=== PATIENT | male | born 1960 | race African-American/Black ===

== ENCOUNTER 2023-08-13 13:59 | Inpatient (IN) | payer BC, SELFPAY ==
--- NOTE | 2023-08-12 23:08 | ED.GENMED ---
Addendum entered and electronically signed by Frankie Pineda MD 08/13/23 09:34:
Patient has remained stable overnight. Mild hypoxia while sleeping. States he feels mildly improved. In no respiratory distress but pulse ox 97 to 98% on 4 L. Lungs with a few bibasilar crackles. Heart regular rate and rhythm. Elevated BMI.
Extremities unremarkable. Large but no cord or erythema.
Testing reviewed. Suspicious for mild CHF. However PE/DVT has to be entertained. Patient is too large for our scanner. We are trying to transfer to [facility] they have accepted him but awaiting a bed. I have elected to do leg ultrasounds and
get an echocardiogram. This was reviewed with cardiology. Upon updating the patient he went into a 9 beat run of ventricular tachycardia. Cardiology was then consulted. Also given a dose of Lasix and I have elected to heparinize him. He is
aware of the risk benefit of heparin. He has no bleeding disorders. Currently is stable. Repeat EKG stable.
Original Note:
History of Present Illness
General
Chief Complaint: Breathing Problem
Source: patient and family
Exam Limitations: none
Time Seen by Provider: 08/12/23 22:40
Nursing documentation reviewed up to this point in time: agreed with
Travel History
Have you had any contact with someone who has COVID-19?: No
Do you have any symptoms of coronavirus? Fever > 100 degrees, chills, cough, shortness of breath, sore throat, loss of taste or smell, muscle aches, or headache?: Yes
Symptoms:: SOB
History of Present Illness
History of Present Illness:
Patient is a very pleasant 62-year-old man with a past medical history of hypertension, GERD and obesity who presents with gradually worsening shortness of breath for 2 to 3 weeks. In addition, patient reports increased swelling in both lower legs
and ankles. Patient reports that he has never felt short of breath before. He denies a history of cardiac disease. He denies a history of pulmonary embolism and DVT. He denies recent long travel history. Patient reports he has been coughing up
white mucus but denies fever. He denies sick contacts. Patient denies any specific chest pain.
Past History
Past History
ED Past Medical History: HTN
ED Past Surgical History: Other
Social History
Tobacco: Non-smoker
Alcohol: None
Drug: None
Personal:
Living: with family
Employment: Employed
Family History
Family History: Other
Review of Systems
Review of Systems
Allergies reviewed?: Yes
Other source history: family
All Other Systems: ROS reviewed and negative except as documented in HPI and ROS
Constitutional: Reports no symptoms
EENT: Reports no symptoms
Respiratory: Reports cough and trouble breathing
Cardiac: Reports no symptoms
ABD/GI: Reports no symptoms
: Reports no symptoms
Musculoskeletal: Reports no symptoms
Skin: Reports no symptoms
Neurological: Reports no symptoms
Endocrine: Reports no symptoms
Hematologic/Lymphatic: Reports no symptoms
Psychiatric: Reports no symptoms
Phy Exam
Physical Exam
Physical Exam:
Physical Exam
General: no apparent distress, not acutely ill
Neck: supple. no meningeal signs. normal psoterior pharynx
Heart: s1/s2 regular rate and rhythm, no murmur. equal radial pulses.
Lungs: no acute respiratory distress. clear bilaterally
Abdomen: normal bowel sounds. not tender. no CVAT
Neuro: alert and oriented. no focal neurological deficits
Skin: no rash
Psychiatric: well kept. interactive and cooperative
Extremities: no edema. no calf tenderness. negative homans. good distal pulses
Scores
Heart Failure Risk
Heart Failure Risk Score: Not Applicable
Course
Orders/Labs/Results
Orders:
Orders
08/12/23 22:57
Electrocardiogram (*1) Urgent
Reason for Study: Other
Other Reason for Exam: Respiratory Distress
Cardiac Monitoring- Treatment ONCE
EKG- Treatment ONCE
IV Insert/Care/Rem.- Treatment PRN
CR Chest - 2 Views Urgent
Comment:
Reason For Exam: respiratory distress
O2 Therapy [RESP] Urgent
Titrate/Wean O2 to maintain O2 sat greater than (%): 93
Special Instructions: TO MAINTAIN CONTINUOUS O2 SATS >/= 93%
Pulse Ox/cont/shift [RESP] Urgent
Quantity: 1
Special Instructions: continuous pulse ox
08/12/23 23:21
Complete Blood Count/With Diff Urgent
Comprehensive Metabolic Panel Urgent
NT-proBNP Urgent
Troponin I Urgent
08/13/23 02:05
Mag Hydrox/Al Hydrox/Simeth [Maalox] 30 ml Phenobarb/Hyoscy/Atropine/Scop [] 10 ml Viscous Lidocaine 2% [Xylocaine Viscous Cup] 10 ml PO NOW
08/13/23 02:14
Mag Hydrox/Al Hydrox/Simeth [Maalox] 30 ml .ROUTE .STK-MED ONE
Mag Hydrox/Al Hydrox/Simeth [Maalox] 30 ml .ROUTE .STK-MED ONE
Phenobarb/Hyoscy/Atropine/Scop [] 10 ml .ROUTE .STK-MED ONE
Phenobarb/Hyoscy/Atropine/Scop [] 10 ml .ROUTE .STK-MED ONE
Viscous Lidocaine 2% [Xylocaine Viscous Cup] 15 ml .ROUTE .STK-MED ONE
Viscous Lidocaine 2% [Xylocaine Viscous Cup] 15 ml .ROUTE .STK-MED ONE
Abnormal Lab Results
08/12/23
23:21
RBC 4.28 L 10^6/uL
(4.70-6.10)
MCV 98.1 H fL
(80.0-94.0)
MCH 32.2 H pg
(27.0-31.0)
MCHC 32.9 L g/dL
(33.0-37.0)
Absolute Lymphs (auto) 1.0 L 10^3/uL
(1.2-3.4)
Neutrophils % 79.5 H %
(42.2-75.2)
Lymphocytes % 13.1 L %
(20.5-51.1)
Chloride 110 H mmol/L
(98-107)
Glucose 118 H mg/dl
(70-99)
Troponin I 0.059 H* ng/ml
08/12/23 23:21
08/12/23 23:21
Vital Signs
Initial and Last Documented VS:
Initial Vital Signs
Temp Pulse Resp Pulse Ox
98.3 F 92 28 94
08/12/23 22:09 08/12/23 22:09 08/12/23 22:09 08/12/23 22:09
Last Documented Vital Signs
Temp Pulse Resp BP Pulse Ox
98.3 F 75 29 142/86 95
08/12/23 22:09 08/13/23 02:00 08/13/23 02:00 08/13/23 02:00 08/13/23 02:00
MDM/Problems Addressed
Differential Diagnosis Includes:
Congestive heart failure, acute coronary syndrome, PE, pneumonia
MDM/Problems Addressed:
Patient presents with subacute shortness of breath and acute hypoxia
Chronic conditions affecting care: HTN
Acute Exacerbation and/or Progression of Chronic Illness: HTN
*Radiology
Radiology exam reviewed: preliminary read by ED provider (Increased lung markings bilaterally)
*Pulse Oximetry
Patient hypoxic: yes
*EKG
Interpreted by ED Provider?: Yes
Interpretation: abnormal
Comparison EKG: changes noted
Rate: normal
Rhythm: sinus
Dexter: left axis deviation
Interval: normal interval
QRS Pattern: normal QRS
Ischemia: non-specific ST changes
*Fire Suppression Captain Interpretation
Rate: normal
Interpretation: normal
Rhythm: sinus
*Critical Care Note
Total Time (30-74mins, 75-104mins- exclusive of procedures): Not Applicable
Data Reviewed
Source: family
Patient Management
Discussion with other providers: Hospitalist (Discussed case with hospitalist, Dr. Alston, who reports that he is uncomfortable admitting the patient due to his body habitus. He reports that if the patient needs a CAT scan, he will not be able to get
it due to weight)
Escalation/DeEscalation of care consider admission/obs:
Initially spoke to automobile accessories installer at [facility] who is hesitant to accept the patient due to his body habitus. I then spoke to Dr. Kayla Calabrese at [facility] in [place] who was agreeable to accepting the patient. The patient remains
hemodynamically stable. His pulse ox is normal on 2 L of oxygen. He has no fever, elevated white blood cell count or sign of pneumonia on chest x-ray.
ED Attending Note
-
Portions of this chart may have been created with voice recognition software.� Occasional wrong word or��sound alike� substitutions may have occurred due to the inherent limitations of voice recognition software.
Discharge Plan
Departure
Patient Disposition: [facility]
Date of Disposition: 08/13/23
Time of Disposition: 00:21
Admit to doctor: Dr. Kayla Calabrese
Patient with high blood pressure during this ER visit?: Yes
Condition: Good
Covid-19: Not Applicable
Discharge Problem:
New onset of congestive heart failure, Acute hypoxia
Prescriptions:
No Action
albuterol sulfate 90 MCG/PUFF HFA aerosol inhaler
2 puff inhalation R Q4HPRN PRN (Reason: wheezing, shortness of breath) Qty: 1 0RF
celecoxib [Celebrex] 200 mg Capsule
200 mg PO DAILY PRN (Reason: aches)
metoprolol succinate 50 mg Tablet Extended Release 24 Hr
50 mg PO DAILY
famotidine [Pepcid AC] 20 mg Tablet
20 mg PO BID
azelastine 137 mcg (0.1 %) Aerosol,[place]
2 spray INTRANASAL BID
Referrals:
Delroy Kolb MD [Family Provider] -
Hospital Transfer
Other hospital: [facility]
I certify that the patient requires transfer: Yes
Discussed case with accepting physician: Dr. Kayla Calabrese
Reason for transfer: availability of service
Interventions
Interventions:
*Risk Screen - Suicide Last Done: 08/12/23 23:01
*General Assessment Last Done: 08/12/23 23:01
*Neglect/Abuse Screening Last Done: 08/12/23 23:01
ED- Fall Risk Assessment Last Done: 08/12/23 23:37
ED- Cardiac Assessment Last Done: 08/12/23 23:37
ED- Pulmonary Assessment Last Done: 08/12/23 23:37
Discharge Date and Time
Print Language: ICELANDIC
[2023-08-12 23:23] VITALS: BMI 69.5
[2023-08-12 23:29] LABS: % Basophils 0.3 % (0-2); % Eosinophils 0.3 % (0-6); % Immature Granulocytes 0.3 % (0-0.5); % Lymphocytes 13.1 % (20.5-51.1); % Monocytes 6.5 % (1.7-9.3); % Neutrophils 79.5 % (42.2-75.2); Absolute Monocytes 0.5 10^3/uL (0.1-0.6); Absolute Neutrophils 6.1 10^3/uL (1.4-6.5); Hemoglobin 13.8 g/dL (13.0-18.0); Mean Corp Hgb Conc. 32.9 g/dL (33.0-37.0); Mean Corpuscular Hgb 32.2 pg (27.0-31.0); Mean Corpuscular Volume 98.1 fL (80.0-94.0); Nucleated Red Blood Cells % 0 % (-); Platelet Count 161 10^3/uL (130-400); Red Blood Cell Count 4.28 10^6/uL (4.70-6.10); Red Cell Dist. Width 12.9 % (11.5-14.5); White Blood Cell Count 7.7 10^3/uL (4.8-10.8)
[2023-08-12 23:36] VITALS: BP 175/89
[2023-08-12 23:43] LABS: ALT (SGPT) 13 U/L (0-50); AST (SGOT) 22 U/L (17-59); Albumin 3.8 g/dl (3.5-5.0); Alkaline Phosphatase 110 U/L (38-126); Blood Urea Nitrogen 13 mg/dl (9-20); Calcium 9.4 mg/dl (8.4-10.2); Carbon Dioxide 24 mmol/L (22-30); Chloride 110 mmol/L (98-107); Estimated Creatinine Clearance > 125 ml/min; Glucose 118 mg/dl (70-99); Potassium 4.3 mmol/L (3.5-5.1); Sodium 140 mmol/L (135-145); eGFR > 60.00
[2023-08-12 23:57] LABS: NT-proBNP 1420 pg/ml; Troponin I 0.059 ng/ml
[2023-08-13] VITALS (20 sets, daily range): BP systolic 117–184; BP diastolic 74–121
[2023-08-13] MEDS: MAALOX 50 PO (02:16)
--- NOTE | 2023-08-13 07:47 | EDRN ---
the pt was received from the previous night patrol inspector RN, the pt is resting in stretcher in the lowest position, side rails up x2, call pappas within reach, HOB elevated, no s/s of distress, no c/o chest pain, c/o SOB on exertion, VS WNL, NSR in the 60's,
last BP 156/121 (134), the pt is currently on 4L NC Sp02 95%, awaiting for transport to be set up to take the pt to [place], the pt and the pts family are aware of this, no complaints offered at this time, will continue to monitor the pt closely
--- NOTE | 2023-08-13 08:48 | ED.GENMED ---
History of Present Illness
General
Chief Complaint: Breathing Problem
Time Seen by Provider: 08/12/23 22:40
Travel History
Have you had any contact with someone who has COVID-19?: No
Do you have any symptoms of coronavirus? Fever > 100 degrees, chills, cough, shortness of breath, sore throat, loss of taste or smell, muscle aches, or headache?: Yes
Symptoms:: SOB
Past History
Past History
ED Past Medical History: HTN
ED Past Surgical History: Other
Social History
Tobacco: Non-smoker
Alcohol: None
Drug: None
Personal:
Living: with family
Employment: Employed
Family History
Family History: Other
Course
Orders/Labs/Results
Orders:
Orders
08/12/23 22:57
Electrocardiogram (*1) Urgent
Reason for Study: Other
Other Reason for Exam: Respiratory Distress
Cardiac Monitoring- Treatment ONCE
EKG- Treatment ONCE
IV Insert/Care/Rem.- Treatment PRN
CR Chest - 2 Views Urgent
Comment:
Reason For Exam: respiratory distress
O2 Therapy [RESP] Urgent
Titrate/Wean O2 to maintain O2 sat greater than (%): 93
Special Instructions: TO MAINTAIN CONTINUOUS O2 SATS >/= 93%
Pulse Ox/cont/shift [RESP] Urgent
Quantity: 1
Special Instructions: continuous pulse ox
08/12/23 23:21
Complete Blood Count/With Diff Urgent
Comprehensive Metabolic Panel Urgent
NT-proBNP Urgent
Troponin I Urgent
08/13/23 02:05
Mag Hydrox/Al Hydrox/Simeth [Maalox] 30 ml Phenobarb/Hyoscy/Atropine/Scop [] 10 ml Viscous Lidocaine 2% [Xylocaine Viscous Cup] 10 ml PO NOW
08/13/23 02:14
Mag Hydrox/Al Hydrox/Simeth [Maalox] 30 ml .ROUTE .STK-MED ONE
Mag Hydrox/Al Hydrox/Simeth [Maalox] 30 ml .ROUTE .STK-MED ONE
Phenobarb/Hyoscy/Atropine/Scop [] 10 ml .ROUTE .STK-MED ONE
Phenobarb/Hyoscy/Atropine/Scop [] 10 ml .ROUTE .STK-MED ONE
Viscous Lidocaine 2% [Xylocaine Viscous Cup] 15 ml .ROUTE .STK-MED ONE
Viscous Lidocaine 2% [Xylocaine Viscous Cup] 15 ml .ROUTE .STK-MED ONE
08/13/23 08:42
US Periph Venous LOWER Ext Yoel Urgent
Comment:
Reason For Exam: Short of breath.
08/13/23 08:43
EKG [Electrocardiogram (*1)] Urgent
Reason for Study: Shortness of Breath
EKG- Treatment ONCE
Troponin I Urgent
08/13/23 08:51
Echo 2D MMode Color/Doppler Urgent
Reason for Study: sob
Abnormal Lab Results
08/12/23
23:21
RBC 4.28 L 10^6/uL
(4.70-6.10)
MCV 98.1 H fL
(80.0-94.0)
MCH 32.2 H pg
(27.0-31.0)
MCHC 32.9 L g/dL
(33.0-37.0)
Absolute Lymphs (auto) 1.0 L 10^3/uL
(1.2-3.4)
Neutrophils % 79.5 H %
(42.2-75.2)
Lymphocytes % 13.1 L %
(20.5-51.1)
Chloride 110 H mmol/L
(98-107)
Glucose 118 H mg/dl
(70-99)
Troponin I 0.059 H* ng/ml
05/31/24 23:21
08/12/23 23:21
Vital Signs
Initial and Last Documented VS:
Initial Vital Signs
Temp Pulse Resp Pulse Ox
98.3 F 92 28 94
08/12/23 22:09 08/12/23 22:09 08/12/23 22:09 08/12/23 22:09
Last Documented Vital Signs
Temp Pulse Resp BP Pulse Ox
97.9 F 69 17 158/86 96
08/13/23 08:29 08/13/23 08:29 08/13/23 08:29 08/13/23 08:29 08/13/23 08:29
Update Note
Update Note:
0850.... Awaiting transfer to [facility]. I elected to evaluate the patient to see how he was doing. He states he feels mildly improved. He was sleeping when I went in the room. His stated his pulse ox did go down to the low 80s while he was
sleeping. However currently at 97 to 98% when alert. He is in no respiratory distress. Lungs are relatively clear but distant. Regular rate and rhythm. Abdomen elevated BMI. Extremities are large symmetrical without cord or erythema.
Impression is shortness of breath. Possible CHF. Pulmonary emboli has to be considered. However patient is too large for our scanner. We are attempting to transfer him. Transfer has not been successful to date. We are contacting [facility]. I
contacted our hospitalist about possible admission here pending transfer but that apparently is a no go. We will do leg ultrasounds. We will also get an echocardiogram to evaluate EF and possible RV strain..
0855... Patient with a run of ventricular tachycardia. 9 beat. Remained stable and asymptomatic. He did state he had an episode of dizziness yesterday. Asked cardiology to see. Feel heparin is reasonable. Both because of a possibility of
underlying PE and coronary disease
ED Attending Note
-
Portions of this chart may have been created with voice recognition software.� Occasional wrong word or��sound alike� substitutions may have occurred due to the inherent limitations of voice recognition software.
Discharge Plan
Departure
Patient Disposition: Acute [facility] Hospital
Date of Disposition: 08/13/23
Time of Disposition: 00:21
Admit to doctor: Dr. Kayla Calabrese
Patient with high blood pressure during this ER visit?: Yes
Condition: Good
Covid-19: Not Applicable
Discharge Problem:
New onset of congestive heart failure, Acute hypoxia
Prescriptions:
No Action
albuterol sulfate 90 MCG/PUFF HFA aerosol inhaler
2 puff inhalation R Q4HPRN PRN (Reason: wheezing, shortness of breath) Qty: 1 0RF
celecoxib [Celebrex] 200 mg Capsule
200 mg PO DAILY PRN (Reason: aches)
metoprolol succinate 50 mg Tablet Extended Release 24 Hr
50 mg PO DAILY
famotidine [Pepcid AC] 20 mg Tablet
20 mg PO BID
azelastine 137 mcg (0.1 %) Aerosol,[place]
2 spray INTRANASAL BID
Referrals:
Delroy Kobl MD [Family Provider] -
Hospital Transfer
Other hospital: [facility]
I certify that the patient requires transfer: Yes
Discussed case with accepting physician: Dr. Kayla Calabrese
Reason for transfer: availability of service
Interventions
Interventions:
*Risk Screen - Suicide Last Done: 08/12/23 23:01
*General Assessment Last Done: 08/12/23 23:01
*Neglect/Abuse Screening Last Done: 08/12/23 23:01
ED- Fall Risk Assessment Last Done: 08/12/23 23:37
ED- Cardiac Assessment Last Done: 08/13/23 07:42
ED- Pulmonary Assessment Last Done: 08/13/23 07:42
Discharge Date and Time
Print Language: JAPANESE
--- NOTE | 2023-08-13 09:04 | EDRN ---
Dr. Pineda and this RN were at the pts bedside and the pt had a 10 beat run of Vtach and then broke into Sinus Rhythm, orders placed by the provider Dr. Pineda, the pt is currently in NSR in the 70's, will continue to monitor the pt closely
[2023-08-13] MEDS: LASIX 40 MG IV (09:28)
[2023-08-13] MEDS: HEPARIN 4000 UNITS IV (09:28)
[2023-08-13] MEDS: HEPARIN 25000 UNITS/250 ML IV (09:33)
--- NOTE | 2023-08-13 09:50 | EDRN ---
Heparin gtt started at 1000units/hour via RAC #[address], PTT sent prior to initiation of heparin, lasix IV also administered, Dr. Pineda at the pts bedside speaking with the pt and the pts , NSR in the 80's, second EKG performed, the pt
has c/o left shoulder intermittent cramping pain 04/23, provider aware, the pt is currently still on 4L NC Sp02 96%, will continue to monitor the pt closely
[2023-08-13 10:14] LABS: Troponin I 0.057 ng/ml
[2023-08-13 10:18] LABS: APTT 28.2 Sec (23.4-35.0)
--- NOTE | 2023-08-13 10:40 | CON.CAR ---
Addendum entered and electronically signed by Vineet Dior MD 08/13/23 11:17:
I saw and examined the patient.
The Plug Wirer's note was reviewed and I agree with the note.
Comment:
GEN: No distress, awake, Ox3
HEENT: supple, anicteric, mmm
LUNGS: dec Bs at bases
CV: Reg, S1/S2, 03/19 syst LSB, no gallop
ABD: soft, BS+, NT/ND
EXT: +1 edema
NEURO: Gross non-focal
SKIN: No rash
Plan:
He has a past medical history of hypertension, GERD, and morbid obesity presents to [facility] with hypoxemia, left shoulder aches and shortness of breath. He has noticed symptoms for the past several weeks with intermittent leg edema,
dyspnea on exertion and yesterday had worsening symptoms. Evaluation revealed mildly abnormal proBNP, hypoxemia, mildly abnormal troponins and a left popliteal DVT.
We were asked to evaluate him regarding chest pain, shortness of breath, and brief nonsustained ventricular tachycardia.
Agree with plan for CT scan to evaluate for thromboembolic disease. Troponins are overall stable. EKG is overall unremarkable.
Would start Lasix 40 mg IV daily and continue IV heparin. Continue Toprol 50 mg daily. His blood pressure is currently much improved.
He will need an echocardiogram but with his body habitus he would likely will need contrast with the study.
After his evaluation for thromboembolic disease he likely will also need an ischemic evaluation.
Add aspirin 81 mg daily.
Will follow if he is not transferred to [facility] for further evaluation.
Original Note:
Consultation
Consultation Request
Date/Time Consultation Requested: 08/12/2013
Date/Time Consultation Performed: 08/13/2023
Requesting Provider: Dr. Pineda
Performing Provider: Dr. Dior
Reason for Consultation: SOB, suspected CHF
Medical History
-
History of Present Illness:
HPI: Lev is a 62 year old male with PMH of hypertension, asthma, GERD, and obesity who presented to [facility] for evaluation of progressively worsening SOB. He states symptoms started a few weeks ago and he would feel short of breath after walking
intermittently. He then noted a few days ago he was becoming more SOB. Yesterday he was short of breath after walking up a flight of stairs and noticed that it took him longer than usual to catch his breath. He then felt SOB walking only a few steps
into the bathroom and decided to check his pulse ox which he states was 83-87%. With this, he called his PCP and was recommended ER evaluation. In ER, he was placed on supplemental oxygen and labwork revealed elevated proBNP. He admits to noticing
increased LE edema mostly of the L leg over the past few weeks as well. He was given a dose of IV lasix in the ER and notes he has been responding quickly with good urine output thus far. He had LE US which showed nonocclusive thrombus involving the
L popliteal vein. Given body habitus, plan is for transfer to [facility] for further evaluation for possible PE. While in ER, he had 10 beat run of NSVT, during which he was asymptomatic. Given concern for acute heart failure and NSVT, cardiology
consulted. He reports he is feeling well currently. Breathing feels improved with supplemental O2 and lasix. He has no chest pain or dizziness.
PMH:
HTN
Asthma
GERD
Obesity
Past Medical History
Past Medical History: Other (In HPI)
Social History
Tobacco: Non-Smoker
Alcohol: None
Drug: None
Personal:
Living: With Family
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
Family History
Family History: Hypertension
Allergies / Home Medications
Allergy/AdvReac Type Severity Reaction Status Date / Time
No Known Allergies Allergy Verified 04/03/15 17:08
�Medication �Instructions �Recorded �Confirmed �Type
albuterol sulfate 90 mcg/actuation 2 puff inhalation R Q4HPRN PRN 10/08/10 08/12/23 Rx
aerosol inhaler wheezing, shortness of breath ##1
azelastine 137 mcg (0.1 %) nasal 2 spray intranasal BID 08/12/23 08/12/23 History
spray aerosol
celecoxib 200 mg capsule (Celebrex) 200 mg PO DAILY PRN aches 08/12/23 08/12/23 History
famotidine 20 mg tablet (Pepcid AC) 20 mg PO BID 08/12/23 08/12/23 History
metoprolol succinate 50 mg 50 mg PO DAILY 08/12/23 08/12/23 History
tablet,extended release 24 hr
Review of Systems
-
History Source: Patient
All other systems: Negative unless noted
Physical Exam
Vital Signs
Temp Pulse Resp BP Pulse Ox
97.9 F 70 27 158/86 98
08/13/23 08:29 08/13/23 10:00 08/13/23 10:00 08/13/23 09:28 08/13/23 10:00
Lab Results
08/12/23 23:21
08/12/23 23:21
Troponin I 0.057 ng/ml H* 08/13/23 09:25
[id number] Pept 1420 pg/ml 08/12/23 23:21
Physical Exam
General: Well Developed, Well Nourished and No Apparent Distress
HEENT: Normocephalic, Anicteric and Moist Mucous Membranes
Respiratory: Clear and Non Labored Respirations
Cardiac: S1/S2 and Regular Rhythm
Musculoskeletal: No Clubbing, No Cyanosis and Edema
Skin: Warm and Dry
Neuro: AO x 3 and Nonfocal/Grossly Intact
Psych: Calm
Impression / Plan
-
PCP: Dr. Kolb
Civil Engineering Manager: None prior to admission
Impression:
Presented with SOB
Nonocclusive thrombus of L popliteal vein
Possible acute HF unknown EF
NSVT
Elevated troponin
HTN
Asthma
GERD
Obesity
Plan:
-Presented with SOB for 2 weeks. Found to have nonocclusive thrombus of the L popliteal vein
-Continue IV heparin which was started in ER.
-Plan is to transfer to [facility] for further evaluation for possible PE.
-Single dose of IV lasix given in ER and noting good output with this. Creat stable at 0.8.
-Eventually consider echo to evaluate EF and for possible right heart strain. This can be done at [facility].
-10 beat run of NSVT noted on telemetry. Asymptomatic. Continue OP Toprol 50mg daily.
-Elevated troponin noted, peaking at 0.059, trending down thereafter. Suspect nonischemic myocardial injury in the setting of volume overload and possible PE.
-EKG stable, SR with no acute ischemic changes noted.
HPI: Lev is a 62 year old male with PMH of hypertension, asthma, GERD, and obesity who presented to [facility] for evaluation of progressively worsening SOB. He states symptoms started a few weeks ago and he would feel short of breath after walking
intermittently. He then noted a few days ago he was becoming more SOB. Yesterday he was short of breath after walking up a flight of stairs and noticed that it took him longer than usual to catch his breath. He then felt SOB walking only a few steps
into the bathroom and decided to check his pulse ox which he states was 83-87%. With this, he called his PCP and was recommended ER evaluation. In ER, he was placed on supplemental oxygen and labwork revealed elevated proBNP. He admits to noticing
increased LE edema mostly of the L leg over the past few weeks as well. He was given a dose of IV lasix in the ER and notes he has been responding quickly with good urine output thus far. He had LE US which showed nonocclusive thrombus involving the
L popliteal vein. Given body habitus, plan is for transfer to [facility] for further evaluation for possible PE. While in ER, he had 10 beat run of NSVT, during which he was asymptomatic. Given concern for acute heart failure and NSVT, cardiology
consulted. He reports he is feeling well currently. Breathing feels improved with supplemental O2 and lasix. He has no chest pain or dizziness.
Data Reviewed
-
EKG: Tracing Personally Visualized and interpreted
Radiology: Report Reviewed by me
Ultrasound: Report Reviewed by me
Labs: Labs Reviewed by me
--- NOTE | 2023-08-13 11:08 | EDRN ---
Molding Associate currently at the pts bedside speaking with the pt and the pts
--- NOTE | 2023-08-13 11:48 | EDRN ---
the pt pressed the call pappas and this RN entered the pts room, the pt stated that he had an accident and needed his bedding changed, this RN with the PCT assisted the pt to stand on the side of the bed and the pt had no issues standing, this RN
cleaned the pts bed and placed a new fitted sheet and pillow case onto the pts stretcher, this RN also provided the pt with a new gown, the pt asked this RN if he could sit on the edge of the bed for a while, this RN spoke with Dr. Pineda about this
and per the provider, the pt is not to get out of bed again or sit on the side of the bed again due to the run of vtach that the pt had earlier, this RN notified the pt and the pt is agreeable to this, will continue to monitor the pt closely
--- NOTE | 2023-08-13 12:28 | EDRN ---
the pt is resting in stretcher in the lowest position, side rails up x2, call pappas within reach, HOB elevated, VS WNL, NSR in the 80's, last BP 184/107 (130), Dr. Pineda notified of the pts elevated blood pressure, the pt is currently still on 4L NC
Sp02 97%, no c/o chest pain, no c/o shoulder pain, no c/o SOB, the pt currently still has Heparin gtt infusing at 1000units/hour, no complaints offered currently, still awaiting for the pt to receive a bed at [facility], will continue to monitor the
pt closely
--- NOTE | 2023-08-13 12:28 | EDRN ---
the pt is resting in stretcher in the lowest position, side rails up x2, call pappas within reach, HOB elevated, VS WNL, NSR in the 's, last BP 184/107 (130), Dr. Pineda notified of the pts elevated blood pressure, the pt is currently still on 4L NC
Sp02 97%, no c/o chest pain, no c/o shoulder pain, no c/o SOB, the pt currently still has Heparin gtt infusing at 1000units/hour and NSS running at 100cc/hour, no complaints offered currently, still awaiting for the pt to receive a bed at [facility],
will continue to monitor the pt closely
--- NOTE | 2023-08-13 12:37 | HPS.HSE ---
Family Physician
-
Family Physician: Delroy Kolb
Chief Complaint
-
Shortness of breath
History of Present Illness
Patient is a 62 years old male with history of hypertension, morbid obesity and BMI of 69/weight 272 kg who presents to the emergency room with about a week of worsening of exertional shortness of breath. Patient denies any chest pain although
admits to discomfort and periodic nonproductive cough. Denies any fever. Denies syncope. Measuring his oxygen saturations at home he noted to be as low as 87% on room air. He denies any recent travel he is mostly sedentary. Presentation to the
emergency room patient found to be hypoxic and placed on nasal cannula oxygen at 4 L saturating at 98% with no evidence of distress.
In addition while in emergency room he noted to have a short run of ventricular tachycardia which was asymptomatic.
Medical History
Past Medical History
Past Medical History: Reports HTN; Denies Arrhythmia, Asthma, CAD, Cancer, CHF, COPD, CVA or NIDDM
Past Surgical History: Reports Orthopedic
Social History
Tobacco: Non-smoker
Alcohol: None
Drug: None
Living: With Family
Employment: Other ([employer])
Family History
Family History: Diabetes
Allergies / Home Medications
Allergies reflects when Allergies were last updated in [facility].
Home Medications with original date entered in [facility]
Allergy/Medication List:
Allergies
Allergy/AdvReac Type Severity Reaction Status Date / Time
No Known Allergies Allergy Verified 04/03/15 17:08
Home Medications
albuterol sulfate 90 mcg/actuation aerosol inhaler 2 puff inhalation R Q4HPRN PRN wheezing, shortness of breath ##1 10/08/10
azelastine 137 mcg (0.1 %) nasal spray aerosol 2 spray intranasal BID 08/12/23
celecoxib 200 mg capsule (Celebrex) 200 mg PO DAILY PRN aches 08/12/23
famotidine 20 mg tablet (Pepcid AC) 20 mg PO BID 08/12/23
metoprolol succinate 50 mg tablet,extended release 24 hr 50 mg PO DAILY 08/12/23
camphor-menthol 0.2 %-3.5 % topical gel 1 applic topical DAILY PRN shoulder/knee pain 08/13/23
Review of Systems
-
A 12 point ROS was completed and negative except as noted: Yes
Physical Exam
Vital Signs
Vital Signs
Temp Pulse Resp BP Pulse Ox
97.9 F 71 19 184/107 96
08/13/23 08:29 08/13/23 12:02 08/13/23 12:02 08/13/23 12:02 08/13/23 12:02
Physical Exam
General: Well Developed, Well Nourished and No Apparent Distress
HEENT: NormoCephalic, Moist mucous membranes and Atraumatic
Respiratory: Clear
Cardiac: S1/S2 and Regular Rhythm; No Murmur or Rub
GI: Soft, Non Tender, Non Distended and Normal Bowel Sounds; No Organomegaly
Rectal: Deferred by Provider
Musculoskeletal: No Clubbing, No Cyanosis and No Edema
Skin: No Rash
Neuro: Nonfocal/grossly intact
Laboratory Results
-
08/12/23 23:21
08/12/23 23:21
Laboratory Results
APTT 28.2 Sec (23.4-35.0) 08/13/23 09:25
Total Bilirubin 1.0 mg/dl (0.2-1.3) 08/12/23 23:21
AST 22 U/L (17-59) 08/12/23 23:21
ALT 13 U/L (0-50) 08/12/23 23:21
Alkaline Phosphatase 110 U/L (38-126) 08/12/23 23:21
Troponin I 0.057 ng/ml H* 08/13/23 09:25
Data Reviewed
-
Ultrasound: Report Reviewed by me
Lab Data: Labs Reviewed by me
Impression/Plan
-
IMPRESSION:
Presentation with shortness of breath and hypoxia.
Acute hypoxic respiratory failure most likely secondary to pulmonary embolism
Left lower extremity DVT, new diagnosis
Episode of ventricular tachycardia, asymptomatic while in the emergency room
Non-NM troponin elevation
Elevated pro CHF BNP
Essential hypertension.
Asthma without exacerbation
Morbid obesity with BMI of 69.
GERD
PLAN:
Acute hypoxic respiratory failure most likely secondary to pulmonary embolism
Patient with super morbid obesity and BMI of 69 with new diagnosis of left popliteal vein thrombosis
Unable to perform CT scan of the chest due to patient's body habitus.
Chest x-ray with mild bilateral congestion.
Noted elevated cardiac markers, although given body habitus not easy to determine volume status.
Continue oxygen supplementation per
Initiated on IV heparin DVT/PE protocol.
Echocardiogram.
Eventually transition to oral anticoagulation
Home O2 assessment
Episode of nonsustained ventricular tachycardia while in the emergency room.
Noted elevated cardiac markers
Patient with no prior history of CAD or arrhythmia.
Echocardiogram pending
Cardiology input appreciated.
Continue cardiac monitoring
Monitor electrolytes
Continue preadmission beta-blockade
Check lipid profile.
Super morbid obesity
Patient at risk for obstructive sleep apnea
Would recommend outpatient sleep study.
Check lipid profile, TSH
Hemoglobin A1c
GERD
Continue Pepcid
Full code
DVT prophylaxis on IV heparin
--- NOTE | 2023-08-13 14:37 | EDRN ---
the pt is going to be admitted to [facility] until [facility] has a bed available, awaiting bed assignment for [facility]
[2023-08-13 15:40] LABS: APTT 28.6 Sec (23.4-35.0)
--- NOTE | 2023-08-13 16:25 | EDRN ---
this RN called the receiving unit and notified them that paper report was going to be tubed up
[2023-08-13 21:07] LABS: Hematocrit 42.7 % (39.0-52.0); Hemoglobin 13.9 g/dL (13.0-18.0); Mean Corp Hgb Conc. 32.6 g/dL (33.0-37.0); Mean Corpuscular Hgb 31.7 pg (27.0-31.0); Mean Corpuscular Volume 97.5 fL (80.0-94.0); Mean Platelet Volume 9.8 fL (7.4-10.4); Platelet Count 167 10^3/uL (130-400); Red Blood Cell Count 4.38 10^6/uL (4.70-6.10); Red Cell Dist. Width 12.9 % (11.5-14.5); White Blood Cell Count 7.5 10^3/uL (4.8-10.8)
[2023-08-13 21:20] LABS: APTT 30.7 Sec (23.4-35.0)
[2023-08-13] MEDS: PEPCID PO (22:53)
[2023-08-13] MEDS: TOPROL XL 50 MG PO (22:53)
[2023-08-14] VITALS (7 sets, daily range): BP systolic 108–161; BP diastolic 72–90; BMI 67.5
[2023-08-14] MEDS: PEPCID PO ×2 (00:10→00:12)
[2023-08-14 00:14] LABS: APTT 31.8 Sec (23.4-35.0)
[2023-08-14] MEDS: HEPARIN 10000 UNITS IV (01:18)
[2023-08-14] MEDS: NON-FORMULARY ITEM 2 SPRAY NASAL ×3 (02:30→20:29)
--- NOTE | 2023-08-14 05:03 | PTCARENOTE ---
08/13/2023 - PT admitted to room 2135 from ED @ 2039. PT transferred from stretcher to bed by self with partial assist. PT oriented to room, call pappas, plan of care discussed. PT arousable, alert and able to participate in admission questions. Tele
monitor #[id number] placed and reading in the 70's. Assessment as documented.
[2023-08-14 07:07] LABS: % Basophils 0.2 % (0-2); % Eosinophils 1.9 % (0-6); % Immature Granulocytes 0.4 % (0-0.5); % Lymphocytes 29.2 % (20.5-51.1); % Monocytes 7.3 % (1.7-9.3); Absolute Eosinophils 0.2 10^3/uL (0-0.7); Absolute Lymphocytes 2.4 10^3/uL (1.2-3.4); Absolute Monocytes 0.6 10^3/uL (0.1-0.6); Hematocrit 46.8 % (39.0-52.0); Mean Corp Hgb Conc. 32.1 g/dL (33.0-37.0); Mean Corpuscular Hgb 31.9 pg (27.0-31.0); Mean Corpuscular Volume 99.6 fL (80.0-94.0); Mean Platelet Volume 10.1 fL (7.4-10.4); Nucleated Red Blood Cells % 0 % (-); Platelet Count 179 10^3/uL (130-400); Red Cell Dist. Width 12.7 % (11.5-14.5); White Blood Cell Count 8.3 10^3/uL (4.8-10.8)
[2023-08-14 07:19] LABS: APTT 91.8 Sec (23.4-35.0)
[2023-08-14 07:27] LABS: Troponin I 0.034 ng/ml
[2023-08-14 07:28] LABS: ALT (SGPT) 12 U/L (0-50); AST (SGOT) 21 U/L (17-59); Albumin 4.2 g/dl (3.5-5.0); Alkaline Phosphatase 125 U/L (38-126); Blood Urea Nitrogen 11 mg/dl (9-20); Calcium 9.8 mg/dl (8.4-10.2); Carbon Dioxide 25 mmol/L (22-30); Chloride 107 mmol/L (98-107); Estimated Creatinine Clearance > 125 ml/min; Glucose 109 mg/dl (70-99); HDL Cholesterol 55 mg/dl; LDL Cholesterol, Calculated 83 mg/dl; Potassium 4.3 mmol/L (3.5-5.1); Sodium 140 mmol/L (135-145); Total Bilirubin 1.2 mg/dl (0.2-1.3); Total Cholesterol 149 mg/dl (50-199); Total Protein 7.5 g/dl (6.3-8.2); Triglyceride 57 mg/dl (10-149); Very Low Density Lipoprotein 11 mg/dl (0-30); eGFR > 60.00
[2023-08-14] MEDS: HEPARIN 25000 UNITS/250 ML IV (07:48)
[2023-08-14] MEDS: TOPROL XL 50 MG PO ×2 (07:55→20:25)
[2023-08-14] MEDS: PEPCID 20 MG PO ×2 (07:55→20:25)
[2023-08-14 07:57] LABS: TSH 3.17 uIU/ml (0.47-4.68)
--- NOTE | 2023-08-14 09:55 | W.PN.HOSP.TC ---
Today's Communication/Plan
-
ECHO pending
stopped IV heparin and changed to Eliquis
d/c planning
Assessment / Plan
Assessment / Plan
IMPRESSION:
Presentation with shortness of breath and hypoxia.
Acute hypoxic respiratory failure most likely secondary to pulmonary embolism
Left lower extremity DVT, new diagnosis
Episode of ventricular tachycardia, asymptomatic while in the emergency room
Non-[place] troponin elevation
Elevated pro CHF BNP
Essential hypertension.
Asthma without exacerbation
Morbid obesity with BMI of 69.
GERD
PLAN:
08/14/23-- agree working diagnosis is PE--IV heparin to Eliquis (no adjustment needed for BMI)--10 mg BID x 7 days followed by 5 mg BID thereafter--pt says he is supposed to go to [facility] 'when bed available', nursing not sure transfer set up--will need
echo Tuesday (not done yet)--apprec cards (spoke with Dr. Dior today)--lasix x1 to be given today.....
Acute hypoxic respiratory failure most likely secondary to pulmonary embolism
Patient with super morbid obesity and BMI of 69 with new diagnosis of left popliteal vein thrombosis
Unable to perform CT scan of the chest due to patient's body habitus.
Chest x-ray with mild bilateral congestion.
Noted elevated cardiac markers, although given body habitus not easy to determine volume status.
Continue oxygen supplementation per
Initiated on IV heparin DVT/PE protocol.
Echocardiogram.
Eventually transition to oral anticoagulation
Home O2 assessment
Episode of nonsustained ventricular tachycardia while in the emergency room.
Noted elevated cardiac markers
Patient with no prior history of CAD or arrhythmia.
Echocardiogram pending
Cardiology input appreciated.
Continue cardiac monitoring
Monitor electrolytes
Continue preadmission beta-blockade
Check lipid profile.
Super morbid obesity
Patient at risk for obstructive sleep apnea
Would recommend outpatient sleep study.
Check lipid profile, TSH
Hemoglobin A1c
GERD
Continue Pepcid
Full code
DVT prophylaxis on IV heparin
Anticipated Discharge: 24 - 48 hours
Subjective/Interval History
-
Date of Service: August 14, 2023
pt had episode of dizziness, tinnitus after new IV placement
Objective Data
-
Labs:
Laboratory Results
08/13/23 08/14/23 08/14/23
23:57 06:44 13:30
WBC 8.3
Hgb 15.0
Hct 46.8
Plt Count 179
APTT 31.8 91.8 H Pending
Sodium 140
Potassium 4.3
Chloride 107
Carbon Dioxide 25
BUN 11
Creatinine 0.8
Glucose 109 H
Calcium 9.8
Total Bilirubin 1.2
AST 21
ALT 12
Alkaline Phosphatase 125
Vital Signs:
max temp for 24 hours
08/14/23
00:06
Temp 98.5 F
Vital Signs
Temp Pulse Resp BP Pulse Ox
97.7 F 72 20 161/88 95
08/14/23 07:55 08/14/23 07:55 08/14/23 07:55 08/14/23 07:55 08/14/23 07:55
I&O
08/13/23 08/14/23 08/15/23
06:59 06:59 06:59
Intake Total 240 / 240
Output Total 1400 / 1400
Balance -1160 / -1160
Review of Systems
-
All other systems: Reviewed and negative
Physical Exam
-
General: Well Developed, Well Nourished and Morbidly Obese
HEENT: Normocephalic, Atraumatic and Oxygen
Respiratory: Clear to Auscultation and Decreased Breath Sounds (limited by body habitus); Negative Wheezes or Rhonchi
Cardiac: Regular Rhythm, S1/S2 and Tachycardic
GI: Soft, Nontender, Nondistended and Normal Bowel Sounds
Musculoskeletal: No Clubbing and No Cyanosis; Negative No Edema (bilateral feet and LE edema)
Skin: Warm
Neuro: Awake and Alert
--- NOTE | 2023-08-14 10:00 | PTCARENOTE ---
Patient complaining of nausea, ringing in ear, and diaphoresis immediately after new IV placement by IV nurse. BP 104/65 sitting up in chair, 98% on 5L NC, HR in 70s NSR on media monitor. made aware, PRN chasidy ordered. Patient states
improvement of symptoms within a few minutes after onset, denies any chest pain or trouble breathing at this time.
[2023-08-14] MEDS: ZOFRAN 4 MG IV (10:01)
[2023-08-14] MEDS: ELIQUIS 10 MG PO ×2 (10:03→20:24)
[2023-08-14 10:17] LABS: Glycohemoglobin (HgbA1c) 5.2 % (4.0-5.6)
--- NOTE | 2023-08-14 11:19 | W.PN.CARDCBS ---
Today's Communication / Plan
-
Agree with plans for Eliquis for presumed pulmonary embolism with lower extremity DVT.
Start Lasix 40 mg IV daily
Check echo in a.m. with contrast
Increase metoprolol to 50 mg p.o. twice daily.
Check lipids.
Impression / Plan
-
PCP: Dr. Kolb
Land Classifier: None prior to admission
Impression:
Presented with SOB
Nonocclusive thrombus of L popliteal vein
Possible acute HF unknown EF
NSVT
Elevated troponin
HTN
Asthma
GERD
Obesity
Plan:
-Presented with SOB for 2 weeks. Found to have nonocclusive thrombus of the L popliteal vein
-Unable to get CT scan because of weight greater than 550 pounds. He has a presumed pulmonary embolism. Being treated with anticoagulation. Starting Eliquis today.
-Will check echocardiogram in a.m. Likely will need contrast.
-Exam was difficult but I suspect he is somewhat volume overloaded. Start Lasix 40 mg IV daily.
-10 beat run of NSVT noted on telemetry. Asymptomatic. Increase Toprol to 50mg bid.
-Elevated troponin noted, peaking at 0.059, trending down thereafter. Suspect nonischemic myocardial injury in the setting of volume overload and possible PE.
-EKG stable, SR with no acute ischemic changes noted.
-Unfortunately due to his size he is not a candidate for stress testing.
-Check lipids.
HPI: Lev is a 62 year old male with PMH of hypertension, asthma, GERD, and obesity who presented to [facility] for evaluation of progressively worsening SOB. He states symptoms started a few weeks ago and he would feel short of breath after walking
intermittently. He then noted a few days ago he was becoming more SOB. Yesterday he was short of breath after walking up a flight of stairs and noticed that it took him longer than usual to catch his breath. He then felt SOB walking only a few steps
into the bathroom and decided to check his pulse ox which he states was 83-87%. With this, he called his PCP and was recommended ER evaluation. In ER, he was placed on supplemental oxygen and labwork revealed elevated proBNP. He admits to noticing
increased LE edema mostly of the L leg over the past few weeks as well. He was given a dose of IV lasix in the ER and notes he has been responding quickly with good urine output thus far. He had LE US which showed nonocclusive thrombus involving the
L popliteal vein. Given body habitus, plan is for transfer to [place] for further evaluation for possible PE. While in ER, he had 10 beat run of NSVT, during which he was asymptomatic. Given concern for acute heart failure and NSVT, cardiology
consulted. He reports he is feeling well currently. Breathing feels improved with supplemental O2 and lasix. He has no chest pain or dizziness.
Progress Note - Land Classifier
Subjective
Date of Service: August 14, 2023
Feeling better but remains hypoxic. Denies chest pains.
Objective
Labs:
08/14/23 06:44
08/14/23 06:44
Labs
Hgb 15.0 g/dL (13.0-18.0) 08/14/23 06:44
Hct 46.8 % (39.0-52.0) 08/14/23 06:44
Plt Count 179 10^3/uL (130-400) 08/14/23 06:44
APTT 91.8 Sec (23.4-35.0) H 08/14/23 06:44
Sodium 140 mmol/L (135-145) 08/14/23 06:44
Potassium 4.3 mmol/L (3.5-5.1) 08/14/23 06:44
BUN 11 mg/dl (9-20) 08/14/23 06:44
Creatinine 0.8 mg/dL (0.7-1.3) 08/14/23 06:44
Glucose 109 mg/dl (70-99) H 08/14/23 06:44
Troponins
08/12/23 08/13/23 08/14/23
23:21 09:25 06:44
Troponin I 0.059 H* 0.057 H* 0.034
Vital Signs and I&O:
Vital Signs
Temp Pulse Resp BP Pulse Ox
97.7 F 72 20 161/88 95
08/14/23 07:55 08/14/23 07:55 08/14/23 07:55 08/14/23 07:55 08/14/23 07:55
Vital Signs
Temp Pulse Resp BP Pulse Ox
97.7 F 72 20 161/88 95
08/14/23 07:55 08/14/23 07:55 08/14/23 07:55 08/14/23 07:55 08/14/23 07:55
Intake & Output
08/12/23 08/13/23 08/14/23 08/15/23
06:59 06:59 06:59 06:59
Intake Total 240 / 240
Output Total 1400 / 1400
Balance -1160 / -1160
Physical Exam
Physical Exam
GEN: No distress, awake, Ox3
HEENT: supple, anicteric, mmm
LUNGS: Decreased breath sounds at bases
CV: Reg, S1/S2, 1/6 syst LSB, S4+
ABD: soft, BS+, NT/ND
EXT: +1 edema
NEURO: Gross non-focal
SKIN: No rash
[2023-08-14] MEDS: LASIX 40 MG IV (12:18)
[2023-08-14] MEDS: CLARITIN 10 MG PO (13:10)
--- NOTE | 2023-08-14 16:24 | CM ---
Initial assessment completed with pt at bedside.
Pt is a 62yr old male admitted with Hypoxia.
Pt at baseline with his in [place] that is 1 step to enter and 2 levels.
Per pt, he was doing the steps prior but it was a struggle.
Pt is indep at baseline and has a cane but does not currently use it. Pt does drive.
Pt is currently on O2 and says that they are concerned about the overnights that he has sleep apnea. May need Home O2 until able to get sleep study and set up with appropriate equipment.
Pt also new to blood thinners and concerned about that as well. Pt verbalizes the fear that he is overweight and that he may bump something and would accept [facility]. Pt is working with PCP to lose weight.
PCP; Delroy Kolb
Pharm; [facility]
PLAN; Home with [facility] and O2 Likely
[2023-08-15] VITALS (7 sets, daily range): BP systolic 115–151; BP diastolic 61–93; PULSE 2; BMI 65.4
--- NOTE | 2023-08-15 01:39 | PTCARENOTE ---
Provider notified patient with multiple episodes of apnea, spo2 drops to 70, patient apneic with 15L O2 NC and Ventimask @ 15L. Patient waken and recovered after 3 minutes. RT notified to apply BIPAP, patient agreeable.
[2023-08-15 06:54] LABS: Hematocrit 44.1 % (39.0-52.0); Hemoglobin 13.5 g/dL (13.0-18.0); Mean Corp Hgb Conc. 30.6 g/dL (33.0-37.0); Mean Corpuscular Hgb 32.1 pg (27.0-31.0); Mean Corpuscular Volume 104.8 fL (80.0-94.0); Mean Platelet Volume 10.4 fL (7.4-10.4); Platelet Count 152 10^3/uL (130-400); Red Blood Cell Count 4.21 10^6/uL (4.70-6.10); Red Cell Dist. Width 12.9 % (11.5-14.5); White Blood Cell Count 6.4 10^3/uL (4.8-10.8)
[2023-08-15 07:27] LABS: ALT (SGPT) 12 U/L (0-50); AST (SGOT) 21 U/L (17-59); Albumin 3.3 g/dl (3.5-5.0); Alkaline Phosphatase 102 U/L (38-126); Blood Urea Nitrogen 19 mg/dl (9-20); Calcium 8.8 mg/dl (8.4-10.2); Carbon Dioxide 27 mmol/L (22-30); Chloride 107 mmol/L (98-107); Estimated Creatinine Clearance > 125 ml/min; Glucose 88 mg/dl (70-99); Magnesium 2.2 mg/dl (1.6-2.3); Potassium 4.5 mmol/L (3.5-5.1); Sodium 140 mmol/L (135-145); Total Bilirubin 0.9 mg/dl (0.2-1.3); Total Protein 6.1 g/dl (6.3-8.2); eGFR > 60.00
[2023-08-15] MEDS: PEPCID 20 MG PO ×2 (08:16→19:37)
[2023-08-15] MEDS: BenGay-Like 1 APPLIC TOPICAL (08:16)
[2023-08-15] MEDS: TOPROL XL 50 MG PO ×2 (08:16→19:37)
[2023-08-15] MEDS: ELIQUIS 10 MG PO ×2 (08:17→19:36)
[2023-08-15] MEDS: LASIX 40 MG IV (08:17)
[2023-08-15] MEDS: NON-FORMULARY ITEM 2 SPRAY NASAL ×2 (08:18→19:36)
[2023-08-15] MEDS: CLARITIN PO (08:23)
--- NOTE | 2023-08-15 08:41 | PTCARENOTE ---
Received call from (Arik at [facility]) to get update on patient. No bed available at moment.
--- NOTE | 2023-08-15 12:28 | W.PN.CARDCBS ---
Today's Communication / Plan
-
Continue IV Lasix with weight loss and presumed CHF
Check echo with contrast
No further VT on higher dose of Toprol
Continue treatment for DVT and possible pulm embolism
Continue treatment for sleep apnea
Impression / Plan
-
PCP: Dr. Kolb
Header Operator: None prior to admission
Impression:
Presented with SOB
Nonocclusive thrombus of L popliteal vein
Possible acute HF unknown EF
NSVT
nonischemic myocardial injury
HTN
Asthma
GERD
Obesity
Sleep apnea
Plan:
Volume status extremely difficult to ascertain but weight may be going down and has frequent urination with IV Lasix with stable renal
Will continue IV Lasix and check echocardiogram with [facility]
No further VT on higher dose of Toprol
He is not a candidate for stress testing or invasive treatment given his morbid obesity
He has been treated empirically for possible pulm embolism with anticoagulation
He feels much better with treatment of sleep apnea
HPI: Lev is a 62 year old male with PMH of hypertension, asthma, GERD, and obesity who presented to [facility] for evaluation of progressively worsening SOB. He states symptoms started a few weeks ago and he would feel short of breath after walking
intermittently. He then noted a few days ago he was becoming more SOB. Yesterday he was short of breath after walking up a flight of stairs and noticed that it took him longer than usual to catch his breath. He then felt SOB walking only a few steps
into the bathroom and decided to check his pulse ox which he states was 83-87%. With this, he called his PCP and was recommended ER evaluation. In ER, he was placed on supplemental oxygen and labwork revealed elevated proBNP. He admits to noticing
increased LE edema mostly of the L leg over the past few weeks as well. He was given a dose of IV lasix in the ER and notes he has been responding quickly with good urine output thus far. He had LE US which showed nonocclusive thrombus involving the
L popliteal vein. Given body habitus, plan is for transfer to [place] for further evaluation for possible PE. While in ER, he had 10 beat run of NSVT, during which he was asymptomatic. Given concern for acute heart failure and NSVT, cardiology
consulted. He reports he is feeling well currently. Breathing feels improved with supplemental O2 and lasix. He has no chest pain or dizziness.
Progress Note - Header Operator
Subjective
Date of Service: August 15, 2023
No complaints
Objective
Labs:
08/15/23 05:54
08/15/23 05:54
Labs
Hgb 13.5 g/dL (13.0-18.0) 08/15/23 05:54
Hct 44.1 % (39.0-52.0) 08/15/23 05:54
Plt Count 152 10^3/uL (130-400) 08/15/23 05:54
APTT Cancelled 08/14/23 13:30
Sodium 140 mmol/L (135-145) 08/15/23 05:54
Potassium 4.5 mmol/L (3.5-5.1) 08/15/23 05:54
BUN 19 mg/dl (9-20) 08/15/23 05:54
Creatinine 1.0 mg/dL (0.7-1.3) 08/15/23 05:54
Glucose 88 mg/dl (70-99) 08/15/23 05:54
Troponins
08/12/23 08/13/23 08/14/23
23:21 09:25 06:44
Troponin I 0.059 H* 0.057 H* 0.034
Vital Signs and I&O:
Vital Signs
Temp Pulse Resp BP Pulse Ox
97.9 F 70 18 115/62 99
08/15/23 11:41 08/15/23 11:41 08/15/23 11:41 08/15/23 11:41 08/15/23 11:41
Vital Signs
Temp Pulse Resp BP Pulse Ox
97.9 F 70 18 115/62 99
08/15/23 11:41 08/15/23 11:41 08/15/23 11:41 08/15/23 11:41 08/15/23 11:41
Intake & Output
08/13/23 08/14/23 08/15/23 08/16/23
06:59 06:59 06:59 06:59
Intake Total 240 / 240 960 / 960 480 / 480
Output Total 1400 / 1400 1000 / 1000 300 / 300
Balance -1160 / -1160 -40 / -40 180 / 180
Physical Exam
Physical Exam
General: Morbidly obese
Neck: Supple, no JVD, HJR, carotids +2 B/L, no bruits bilaterally.
Heart: Non displaced PMI, RRR, no murmurs, No S3, S4, no rubs.
Lungs: Scattered rhonchi
Extremities: No clubbing, cyanosis or edema bilaterally.
Neuro: Grossly nonfocal, awake, alert and oriented x3.
[2023-08-15] MEDS: BenGay-Like TOPICAL ×3 (12:38→22:00)
--- NOTE | 2023-08-15 13:20 | PTCARENOTE ---
Patient weaned down to 2L from 5L of oxygen this morning. Patient reports feeling better with no s/s of distress. Will continue to monitor.
--- NOTE | 2023-08-15 16:27 | CM ---
CM reviewed pt with Dr Pacheco- ADC 1-2 days
Pt remains on new oxygen
Dr Menard requested CM explore if pt able to obtain bipap without sleep study on dc
CM to follow up
Discharge Disposition- home, follow for O2 and potential bipap needs
--- NOTE | 2023-08-15 17:53 | W.PN.HOSP.TC ---
Today's Communication/Plan
-
Anticoagulation with Eliquis.
Echocardiogram.
IV diuresis.
Ambulatory pulse ox assessment prior to discharge.
Options for CPAP prior to outpatient sleep study.
Assessment / Plan
Assessment / Plan
IMPRESSION:
Presentation with shortness of breath and hypoxia.
Acute hypoxic respiratory failure most likely secondary to pulmonary embolism
Left lower extremity DVT, new diagnosis
Episode of ventricular tachycardia, asymptomatic while in the emergency room
Non-MT troponin elevation
Elevated pro CHF BNP
Essential hypertension.
Asthma without exacerbation
Morbid obesity with BMI of 69.
GERD
PLAN:
Acute hypoxic respiratory failure most likely secondary to pulmonary embolism
Patient with super morbid obesity and BMI of 69 with new diagnosis of left popliteal vein thrombosis
Unable to perform CT scan of the chest due to patient's body habitus.
Chest x-ray with mild bilateral congestion.
Noted elevated cardiac markers, although given body habitus not easy to determine volume status.
Continue oxygen supplementation per
Initiated on IV heparin DVT/PE protocol.
Transition to oral anticoagulation with Eliquis
Echocardiogram pending
Eventually transition to oral anticoagulation
Home O2 assessment.
Acute CHF unknown EF suspected.
Volume status hard to assess given body habitus.
Acute hypoxic respiratory failure likely in combination of pulmonary embolism, CHF, obstructive sleep apnea.
Echocardiogram pending
Initiated on IV Lasix diuresis. Will continue for another 24 to 48 hours pending echocardiogram as well as monitoring weights, output and renal function
Obstructive sleep apnea suspected
Initiated on CPAP
Will need outpatient sleep study.
Case management consultation for outpatient CPAP options pending formal sleep study
Ambulatory home O2 assessment prior to discharge
Episode of nonsustained ventricular tachycardia while in the emergency room.
Noted elevated cardiac markers
Patient with no prior history of CAD or arrhythmia.
Echocardiogram pending
Cardiology input appreciated.
Continue cardiac monitoring
Monitor electrolytes
Continue preadmission beta-blockade
Super morbid obesity
Patient at risk for obstructive sleep apnea
Would recommend outpatient sleep study.
LDL 83
TSH within normal limits
Hemoglobin A1c 5.2
GERD
Continue Pepcid
Full code
DVT prophylaxis on IV heparin
Anticipated Discharge: 24 - 48 hours
Subjective/Interval History
-
Date of Service: August 15, 2023
Objective Data
-
Labs:
Laboratory Results
08/15/23
05:54
WBC 6.4
Hgb 13.5
Hct 44.1
Plt Count 152
Sodium 140
Potassium 4.5
Chloride 107
Carbon Dioxide 27
BUN 19
Creatinine 1.0
Glucose 88
Calcium 8.8
Total Bilirubin 0.9
AST 21
ALT 12
Alkaline Phosphatase 102
Vital Signs:
Vital Signs
Temp Pulse Resp BP Pulse Ox
97.2 F 75 18 148/77 99
08/15/23 15:58 08/15/23 15:58 08/15/23 15:58 08/15/23 15:58 08/15/23 15:58
I&O
08/14/23 08/15/23 08/16/23
06:59 06:59 06:59
Intake Total 240 / 240 960 / 960 480 / 480
Output Total 1400 / 1400 1000 / 1000 1025 / 1025
Balance -1160 / -1160 -40 / -40 -545 / -545
Physical Exam
-
General: Well Developed and No Apparent Distress
HEENT: Normocephalic, Atraumatic and Moist Mucous Membranes
Respiratory: Clear to Auscultation
Cardiac: Regular Rhythm and S1/S2; Negative Murmur, Rub or Gallop
GI: Soft, Nontender, Nondistended and Normal Bowel Sounds; Negative Organomegaly
Rectal: Deferred by Provider
Musculoskeletal: No Clubbing, No Cyanosis and No Edema
Skin: Negative Rash
Neuro: Nonfocal/Grossly Intact
[2023-08-16] VITALS (7 sets, daily range): BP systolic 130–166; BP diastolic 76–98; PULSE 2–69; BMI 67.8
[2023-08-16 07:08] LABS: Blood Urea Nitrogen 22 mg/dl (9-20); Carbon Dioxide 30 mmol/L (22-30); Chloride 106 mmol/L (98-107); Estimated Creatinine Clearance > 125 ml/min; Glucose 93 mg/dl (70-99); Potassium 4.6 mmol/L (3.5-5.1); Sodium 139 mmol/L (135-145); eGFR > 60.00
[2023-08-16] MEDS: ELIQUIS 10 MG PO ×2 (09:11→21:03)
[2023-08-16] MEDS: TOPROL XL 50 MG PO ×2 (09:11→21:04)
[2023-08-16] MEDS: BenGay-Like 1 APPLIC TOPICAL ×2 (09:12→21:11)
[2023-08-16] MEDS: CLARITIN PO (09:12)
[2023-08-16] MEDS: NON-FORMULARY ITEM 2 SPRAY NASAL ×2 (09:13→21:05)
[2023-08-16] MEDS: COLACE 100 MG PO ×2 (09:13→21:04)
[2023-08-16] MEDS: LASIX 40 MG IV ×2 (09:13→16:56)
[2023-08-16] MEDS: PEPCID PO (09:23)
[2023-08-16 10:28] LABS: B.E. 0.7 mmol/L; HCO3 26.6 mmol/L (21-28); O2 Saturation % 96.3 % (94-98); PCO2 46 mmHg (35-48); PO2 76 mmHg (83-108); pH 7.37 (7.35-7.45)
[2023-08-16] MEDS: BenGay-Like TOPICAL ×2 (13:51→16:56)
--- NOTE | 2023-08-16 14:34 | W.PN.CARDCBS ---
Addendum entered and electronically signed by Beau Viveros MD 08/16/23 16:27:
I saw and examined the patient.
The BRADDER or PA's note was reviewed and I agree with the note.
Comment: General: Well developed, well nourished in NAD.
Neck: Supple, no JVD, HJR, carotids +2 B/L, no bruits bilaterally.
Heart: Non displaced PMI, RRR, no murmurs, No S3, S4, no rubs.
Lungs: Clear to auscultation bilaterally, no wheeze, rhonchi, rubs bilaterally,
normal expiratory phase.
Extremities: No clubbing, cyanosis or edema bilaterally.
Neuro: Grossly nonfocal, awake, alert and oriented x3.
He is a very difficult examination unclear if weights are accurate. He did not urinate much yesterday seems to be urinating more today. Will try higher dose of IV Lasix to assess how much of this is CHF. Will continue to follow renal function
closely. Might consider eventual RIYA/ARB but EF is normal and we will try to diurese first.
Original Note:
Today's Communication / Plan
-
Continue IV Lasix, increase to BID dosing
Dietary consult
Consider addition of RIYA/ARB for improved blood pressure control
Impression / Plan
-
PCP: Dr. Kolb
Gore Inserter: None prior to admission
Impression:
Presented with SOB
Nonocclusive thrombus of L popliteal vein
Acute HFpEF
Pulmonary hypertension
NSVT
nonischemic myocardial injury
HTN
Asthma
GERD
Obesity
Sleep apnea
Echocardiogram 08/15/2023: Definity used, EF 55 to 60%, mild concentric LVH, moderate to severe pulmonary hypertension and PASP 55 to 60 mmHg
Plan:
-Unclear dry weight, and weights do not appear accurate, however continues to respond well to IV Lasix. Creatinine stable at 0.9. Continue IV diuresis until creatinine bumps. Iv lasix dose increased to 40mg BID today
-Remains in sinus rhythm with 1 couplet overnight on review of telemetry.
-K/mag stable
-Continue Toprol 50 mg twice daily
-Consider addition of RIYA/ARB for improved blood pressure control
-Dietary consult. He reports he is very motivated to continue to lose weight. We discussed salt and fluid restrictions
-He is not a candidate for stress testing or invasive treatment given his morbid obesity
-He has been treated empirically for possible pulm embolism with eliquis
-Continue treatment of sleep apnea
HPI: Lev is a 62 year old male with PMH of hypertension, asthma, GERD, and obesity who presented to [facility] for evaluation of progressively worsening SOB. He states symptoms started a few weeks ago and he would feel short of breath after walking
intermittently. He then noted a few days ago he was becoming more SOB. Yesterday he was short of breath after walking up a flight of stairs and noticed that it took him longer than usual to catch his breath. He then felt SOB walking only a few steps
into the bathroom and decided to check his pulse ox which he states was 83-87%. With this, he called his PCP and was recommended ER evaluation. In ER, he was placed on supplemental oxygen and labwork revealed elevated proBNP. He admits to noticing
increased LE edema mostly of the L leg over the past few weeks as well. He was given a dose of IV lasix in the ER and notes he has been responding quickly with good urine output thus far. He had LE US which showed nonocclusive thrombus involving the
L popliteal vein. Given body habitus, plan is for transfer to [place] for further evaluation for possible PE. While in ER, he had 10 beat run of NSVT, during which he was asymptomatic. Given concern for acute heart failure and NSVT, cardiology
consulted. He reports he is feeling well currently. Breathing feels improved with supplemental O2 and lasix. He has no chest pain or dizziness.
Progress Note - Gore Inserter
Subjective
Date of Service: August 16, 2023
Reports breathing improving. Reports good urinary output. Reports improvement in swelling
Objective
Labs:
08/15/23 05:54
08/16/23 06:23
Labs
Hgb 13.5 g/dL (13.0-18.0) 08/15/23 05:54
Hct 44.1 % (39.0-52.0) 08/15/23 05:54
Plt Count 152 10^3/uL (130-400) 08/15/23 05:54
APTT Cancelled 08/14/23 13:30
Sodium 139 mmol/L (135-145) 08/16/23 06:23
Potassium 4.6 mmol/L (3.5-5.1) 08/16/23 06:23
BUN 22 mg/dl (9-20) H 08/16/23 06:23
Creatinine 0.9 mg/dL (0.7-1.3) 08/16/23 06:23
Glucose 93 mg/dl (70-99) 08/16/23 06:23
Troponins
08/14/23
06:44
Troponin I 0.034
Vital Signs and I&O:
Vital Signs
Temp Pulse Resp BP Pulse Ox
98.0 F 75 14 147/90 96
08/16/23 11:04 08/16/23 11:04 08/16/23 11:04 08/16/23 11:04 08/16/23 11:04
Vital Signs
Temp Pulse Resp BP Pulse Ox
98.0 F 75 14 147/90 96
08/16/23 11:04 08/16/23 11:04 08/16/23 11:04 08/16/23 11:04 08/16/23 11:04
Intake & Output
08/14/23 08/15/23 08/16/23 08/17/23
07:59 07:59 07:59 07:59
Intake Total 240 / 240 960 / 960 1680 / 1680
Output Total 1400 / 1400 1000 / 1000 1600 / 1600
Balance -1160 / -1160 -40 / -40 80 / 80
Physical Exam
Physical Exam
GEN: No distress, awake, alert, oriented x3. Morbidly obese
HEENT: supple, anicteric, mmm, EOMI
LUNGS: CTA bilaterally, no wheezes/rales
CV: Reg, S1/S2, no murmur
ABD: soft, BS+, NT/ND
EXT: No cyanosis, clubbing. 2+ edema of bilateral lower extremity to level of thigh
NEURO: Gross non-focal
SKIN: Warm, pink, dry. No rash
--- NOTE | 2023-08-16 15:55 | CM ---
CM reviewed pt with Dr. Pacheco- ADC tomorrow
Bedside meeting with pt- aware CM exploring bipap at home
In agreement with referral to [facility]
Discussion with [facility]- pt may qualify for bipap if pCO2 52 or greater and with qualifying dx of obesity hypoventilation syndrome E66.2
Awaiting ABG off bipap results
Discharge Disposition- home, follow for VN/O2/bipap needs
--- NOTE | 2023-08-16 16:29 | W.PN.HOSP.TC ---
Today's Communication/Plan
-
Oral anticoagulation
IV diuresis
CPAP at night
Home O2 assessment
Attempt to approve CPAP for discharge home prior to formal sleep studies as outpatient
ABG on room air pending.
Assessment / Plan
Assessment / Plan
IMPRESSION:
Presentation with shortness of breath and hypoxia.
Acute hypoxic respiratory failure most likely secondary to pulmonary embolism
Left lower extremity DVT, new diagnosis
Episode of ventricular tachycardia, asymptomatic while in the emergency room
Non-DC troponin elevation
Elevated pro CHF BNP
Essential hypertension.
Asthma without exacerbation
Morbid obesity with BMI of 69.
GERD
PLAN:
Acute hypoxic respiratory failure most likely secondary to pulmonary embolism
Patient with super morbid obesity and BMI of 69 with new diagnosis of left popliteal vein thrombosis
Unable to perform CT scan of the chest due to patient's body habitus.
Chest x-ray with mild bilateral congestion.
Noted elevated cardiac markers, although given body habitus not easy to determine volume status.
Continue oxygen supplementation per
Initiated on IV heparin DVT/PE protocol.
Transition to oral anticoagulation with Eliquis
Home O2 assessment.
Assessment for CPAP
Acute CHF preserved EF.
Echocardiogram 1. Left ventricle: Definity contrast was utilized to improve endocardial
definition. Left ventricular chamber dimensions were within normal limits with
an estimated ejection fraction of 55-60%. Mild concentric LVH
2. Right ventricle: Normal
3. Atria: Normal
4. Mitral valve: No mitral regurgitation
5. Aortic valve: No aortic stenosis or aortic insufficiency
6. Tricuspid valve: Trace tricuspid regurgitation with moderate to severe
pulmonary hypertension and estimated pulmonary artery systolic pressures 55-60
mmHg.
Volume status hard to assess given body habitus.
Acute hypoxic respiratory failure likely in combination of pulmonary embolism, CHF, obstructive sleep apnea.
Initiated on IV Lasix diuresis. Will continue for another 24 to 48 hours pending echocardiogram as well as monitoring weights, output and renal function
Obstructive sleep apnea suspected
Initiated on CPAP
Will need outpatient sleep study.
Case management consultation for outpatient CPAP options pending formal sleep study
Ambulatory home O2 assessment prior to discharge
Episode of nonsustained ventricular tachycardia while in the emergency room.
Noted elevated cardiac markers
Patient with no prior history of CAD or arrhythmia.
Echocardiogram pending
Cardiology input appreciated.
Continue cardiac monitoring
Monitor electrolytes
Continue preadmission beta-blockade
Super morbid obesity
Patient at risk for obstructive sleep apnea
Would recommend outpatient sleep study.
LDL 83
TSH within normal limits
Hemoglobin A1c 5.2
GERD
Continue Pepcid
Full code
DVT prophylaxis on IV heparin
Anticipated Discharge: 24 - 48 hours
Subjective/Interval History
-
Date of Service: August 16, 2023
Objective Data
-
Labs:
Laboratory Results
08/16/23 08/16/23 08/16/23
06:23 10:04 15:46
HCO3 26.6 Pending
Sodium 139
Potassium 4.6
Chloride 106
Carbon Dioxide 30
BUN 22 H
Creatinine 0.9
Glucose 93
Calcium 9.0
Vital Signs:
Vital Signs
Temp Pulse Resp BP Pulse Ox
98.6 F 73 16 130/80 96
08/16/23 15:40 08/16/23 15:40 08/16/23 15:40 08/16/23 15:40 08/16/23 15:40
I&O
08/15/23 08/16/23 08/17/23
06:59 06:59 06:59
Intake Total 960 / 960 1680 / 1680
Output Total 1000 / 1000 1600 / 1600
Balance -40 / -40 80 / 80
Physical Exam
-
General: Well Developed and No Apparent Distress
HEENT: Normocephalic, Atraumatic and Moist Mucous Membranes
Respiratory: Clear to Auscultation
Cardiac: Regular Rhythm and S1/S2; Negative Murmur, Rub or Gallop
GI: Soft, Nontender, Nondistended and Normal Bowel Sounds; Negative Organomegaly
Rectal: Deferred by Provider
Musculoskeletal: No Clubbing, No Cyanosis and No Edema
Skin: Negative Rash
Neuro: Nonfocal/Grossly Intact
[2023-08-16] MEDS: PEPCID 20 MG PO (17:03)
[2023-08-16] MEDS: SENOKOT 8.59999999999999964 MG PO (22:32)
[2023-08-17] VITALS (8 sets, daily range): BP systolic 119–155; BP diastolic 60–96; PULSE 2–72; BMI 67.3
[2023-08-17 05:51] LABS: Blood Urea Nitrogen 18 mg/dl (9-20); Calcium 8.9 mg/dl (8.4-10.2); Carbon Dioxide 30 mmol/L (22-30); Chloride 104 mmol/L (98-107); Estimated Creatinine Clearance > 125 ml/min; Glucose 93 mg/dl (70-99); Sodium 140 mmol/L (135-145); eGFR > 60.00
[2023-08-17 05:51] LABS: B.E. 2.7 mmol/L; HCO3 28.9 mmol/L (21-28); O2 Saturation % 92.9 % (94-98); PCO2 50 mmHg (35-48); PO2 64 mmHg (83-108); pH 7.37 (7.35-7.45)
[2023-08-17 05:52] LABS: O2 Therapy ROOM AIR
[2023-08-17 05:57] LABS: Potassium 4.3 mmol/L (3.5-5.1)
[2023-08-17] MEDS: BenGay-Like 1 APPLIC TOPICAL ×2 (08:48→21:57)
[2023-08-17] MEDS: PEPCID 20 MG PO ×2 (08:49→20:42)
[2023-08-17] MEDS: LASIX 40 MG IV ×2 (08:49→17:29)
[2023-08-17] MEDS: TOPROL XL 50 MG PO ×2 (08:49→20:43)
[2023-08-17] MEDS: CLARITIN 10 MG PO (08:49)
[2023-08-17] MEDS: ELIQUIS 10 MG PO ×2 (08:49→20:42)
[2023-08-17] MEDS: COLACE 100 MG PO ×2 (08:49→20:42)
[2023-08-17] MEDS: NON-FORMULARY ITEM 2 SPRAY NASAL ×2 (08:50→20:42)
--- NOTE | 2023-08-17 09:39 | PTCARENOTE ---
pt verbalizing change in color of urine. light tea color assessed by this nurse within the urinal. pt states he is trying to drink less than he usually does since they are trying to decrease his weight. this nurse will follow up with MD. Haq
applied to pt L shoulder this morning per orders and pt verbalized instant relief with the aching pain he verbalized.
--- NOTE | 2023-08-17 11:21 | PN.CDI ---
CDI
- -
CDI:
Physician Documentation Request
Admit Date: 08/13/23 13:59
Dear Doctor Tara,
Patient admitted with sob and hypoxia.
Hospitalist progress note states 'Acute hypoxic respiratory failure most likely secondary to pulmonary embolism...Non-[place] troponin elevation'
Cardiology refers to the elevated troponin as 'nonischemic myocardial injury'
In an attempt to clarify potential conflicting documentation, please clarify the etiology of the elevated troponin:
Nonischemic myocardial injury
Non [place] troponin elevation
Other
Use of terms such as suspected, likely, concern for, or probable (associated with a specific diagnosis that is being evaluated, monitored, or treated as if it exists) are acceptable and can be coded in the inpatient setting, when documented at the
time of discharge.
Thank you,
Jenn Benson RN, BSN
CDI Specialist
tiger text
Please use your independent medical judgment in providing your response.
[2023-08-17] MEDS: BenGay-Like TOPICAL ×2 (14:22→17:35)
--- NOTE | 2023-08-17 16:13 | CM ---
CM reviewed pt with Dr Pacheco- ADC 1-2 days
Awaiting physician note regarding clinical need for bipap
Once received, will faxed to [employer] for insurance review for coverage
Discharge Disposition- home, follow for bipap needs
--- NOTE | 2023-08-17 16:25 | W.PN.CARDCBS ---
Addendum entered and electronically signed by Vineet Dior MD 08/17/23 17:32:
I saw and examined the patient.
The Staffing Clerk's note was reviewed and I agree with the note.
Comment:
EN: No distress, awake, Ox3
HEENT: supple, anicteric, mmm
LUNGS: CTA, no wheezes/rales
CV: Reg, S1/S2, 1/6 syst LSB, no galllop
ABD: soft, BS+, NT/ND
EXT: ++ edema
NEURO: Gross non-focal
SKIN: No rash
Plan:
He is doing better. He is diuresing significantly. He likely still has significant volume with his acute heart failure with preserved ejection fraction. He is now off oxygen.
Would diurese with IV Lasix for another 24 hours then likely could switch him to oral diuretics to continue this as outpatient.
Cont Eliquis
Original Note:
Today's Communication / Plan
-
continue IV lasix
add losartan
Impression / Plan
-
PCP: Dr. Kolb
Office Spec: None prior to admission
Impression:
Presented with SOB
Nonocclusive thrombus of L popliteal vein
Acute HFpEF
Pulmonary hypertension
NSVT
nonischemic myocardial injury
HTN
Asthma
GERD
Obesity
Sleep apnea
Echocardiogram 08/15/2023: Definity used, EF 55 to 60%, mild concentric LVH, moderate to severe pulmonary hypertension and PASP 55 to 60 mmHg
Plan:
-Unclear dry weight, and weight appears to be trending down. continues to respond well to IV Lasix. Creatinine stable at 0.8. Continue IV diuresis until creatinine bumps. IV lasix 40mg BID continues
-Remains in sinus rhythm with occasional PVCs.
-K/mag stable
-Continue Toprol 50 mg twice daily. will add losartan 25mg daily
-unclear if candidate for SGLT2 inhibitor. will have CM assess cost to patient
-Dietary consult placed 08/15. He reports he is very motivated to continue to lose weight.
-He is not a candidate for stress testing or invasive treatment given his morbid obesity
-He has been treated empirically for possible pulm embolism with eliquis
-Continue treatment of sleep apnea
-will arrange OP cardiac follow up
HPI: Lev is a 62 year old male with PMH of hypertension, asthma, GERD, and obesity who presented to [facility] for evaluation of progressively worsening SOB. He states symptoms started a few weeks ago and he would feel short of breath after walking
intermittently. He then noted a few days ago he was becoming more SOB. Yesterday he was short of breath after walking up a flight of stairs and noticed that it took him longer than usual to catch his breath. He then felt SOB walking only a few steps
into the bathroom and decided to check his pulse ox which he states was 83-87%. With this, he called his PCP and was recommended ER evaluation. In ER, he was placed on supplemental oxygen and labwork revealed elevated proBNP. He admits to noticing
increased LE edema mostly of the L leg over the past few weeks as well. He was given a dose of IV lasix in the ER and notes he has been responding quickly with good urine output thus far. He had LE US which showed nonocclusive thrombus involving the
L popliteal vein. Given body habitus, plan is for transfer to [place] for further evaluation for possible PE. While in ER, he had 10 beat run of NSVT, during which he was asymptomatic. Given concern for acute heart failure and NSVT, cardiology
consulted. He reports he is feeling well currently. Breathing feels improved with supplemental O2 and lasix. He has no chest pain or dizziness.
Progress Note - Office Spec
Subjective
Date of Service: August 17, 2023
reports slightly darker urine today
Objective
Labs:
08/15/23 05:54
08/17/23 04:55
Labs
Hgb 13.5 g/dL (13.0-18.0) 08/15/23 05:54
Hct 44.1 % (39.0-52.0) 08/15/23 05:54
Plt Count 152 10^3/uL (130-400) 08/15/23 05:54
APTT Cancelled 08/14/23 13:30
Sodium 140 mmol/L (135-145) 08/17/23 04:55
Potassium 4.3 mmol/L (3.5-5.1) 08/17/23 04:55
BUN 18 mg/dl (9-20) 08/17/23 04:55
Creatinine 0.8 mg/dL (0.7-1.3) 08/17/23 04:55
Glucose 93 mg/dl (70-99) 08/17/23 04:55
Vital Signs and I&O:
Vital Signs
Temp Pulse Resp BP Pulse Ox
98.7 F 79 16 155/60 95
08/17/23 15:15 08/17/23 15:15 08/17/23 15:15 08/17/23 15:15 08/17/23 15:15
Vital Signs
Temp Pulse Resp BP Pulse Ox
98.7 F 79 16 155/60 95
08/17/23 15:15 08/17/23 15:15 08/17/23 15:15 08/17/23 15:15 08/17/23 15:15
Intake & Output
08/15/23 08/16/23 08/17/23 08/18/23
07:59 07:59 07:59 07:59
Intake Total 960 / 960 1680 / 1680 1080 / 1080
Output Total 1000 / 1000 1600 / 1600 3375 / 3375
Balance -40 / -40 80 / 80 -2295 / -2295
--- NOTE | 2023-08-17 16:53 | W.PN.HOSP.TC ---
Today's Communication/Plan
-
IV Lasix dose increased to twice a day.
CPAP at night.
Oral anticoagulation.
Assessment / Plan
Assessment / Plan
IMPRESSION:
Presentation with shortness of breath and hypoxia.
Acute hypoxic/hypercarbic respiratory failure most likely secondary to pulmonary embolism
Left lower extremity DVT, new diagnosis
Episode of ventricular tachycardia, asymptomatic while in the emergency room
Non-[place] troponin elevation
Elevated pro CHF BNP
Essential hypertension.
Asthma without exacerbation
Morbid obesity with BMI of 69.
GERD
PLAN:
Acute hypoxic respiratory failure most likely secondary to pulmonary embolism
Patient with super morbid obesity and BMI of 69 with new diagnosis of left popliteal vein thrombosis
Unable to perform CT scan of the chest due to patient's body habitus.
Chest x-ray with mild bilateral congestion.
Noted elevated cardiac markers, although given body habitus not easy to determine volume status.
Continue oxygen supplementation per
Initiated on IV heparin DVT/PE protocol.
Transition to oral anticoagulation with Eliquis
Home O2 assessment.
Patient requires noninvasive volume ventilation due to obesity hypoventilation syndrome, bilevel has been considered and ruled out including bilevel VAPS. Patient requires pressure greater than [id number] is not supported by bilevel VAPS due to body
habitus. Traditional ventilator will exceed pressure greater than [id number] with maximum pressure of [id number]
Acute CHF preserved EF.
Echocardiogram 1. Left ventricle: Definity contrast was utilized to improve endocardial
definition. Left ventricular chamber dimensions were within normal limits with
an estimated ejection fraction of 55-60%. Mild concentric LVH
2. Right ventricle: Normal
3. Atria: Normal
4. Mitral valve: No mitral regurgitation
5. Aortic valve: No aortic stenosis or aortic insufficiency
6. Tricuspid valve: Trace tricuspid regurgitation with moderate to severe
pulmonary hypertension and estimated pulmonary artery systolic pressures 55-60
mmHg.
Volume status hard to assess given body habitus.
Acute hypoxic respiratory failure likely in combination of pulmonary embolism, CHF, obstructive sleep apnea.
Initiated on IV Lasix diuresis. Will continue for another 24 to 48 hours pending echocardiogram as well as monitoring weights, output and renal function
Agree with addition of angiotensin receptor blockers
Monitor creatinine while on IV Lasix.
Obstructive sleep apnea strongly suspected and likely causing hypercarbic component of respiratory failure
ABG off CPAP consistent with CO2 retention: pH 7.3 on room air
Initiated on CPAP
Will need outpatient sleep study.
Case management consultation for outpatient CPAP options pending formal sleep study
Ambulatory home O2 assessment prior to discharge
Episode of nonsustained ventricular tachycardia while in the emergency room.
Noted elevated cardiac markers
Patient with no prior history of CAD or arrhythmia.
Echocardiogram pending
Cardiology input appreciated.
Continue cardiac monitoring
Monitor electrolytes
Continue preadmission beta-blockade
Super morbid obesity
Patient at risk for obstructive sleep apnea
Would recommend outpatient sleep study.
LDL 83
TSH within normal limits
Hemoglobin A1c 5.2
GERD
Continue Pepcid
Full code
DVT prophylaxis on IV heparin
Anticipated Discharge: 24 - 48 hours
Subjective/Interval History
-
Date of Service: August 17, 2023
Objective Data
-
Labs:
Laboratory Results
08/17/23 08/17/23
04:55 05:43
HCO3 28.9 H
Sodium 140
Potassium 4.3
Chloride 104
Carbon Dioxide 30
BUN 18
Creatinine 0.8
Glucose 93
Calcium 8.9
Vital Signs:
Vital Signs
Temp Pulse Resp BP Pulse Ox
98.7 F 79 16 155/60 95
08/17/23 15:15 08/17/23 15:15 08/17/23 15:15 08/17/23 15:15 08/17/23 15:15
I&O
08/16/23 08/17/23 08/18/23
06:59 06:59 06:59
Intake Total 1680 / 1680 1080 / 1080
Output Total 1600 / 1600 3375 / 3375
Balance 80 / 80 -2295 / -2295
Physical Exam
-
General: Well Developed and No Apparent Distress
HEENT: Normocephalic, Atraumatic and Moist Mucous Membranes
Respiratory: Clear to Auscultation
Cardiac: Regular Rhythm and S1/S2; Negative Murmur, Rub or Gallop
GI: Soft, Nontender, Nondistended and Normal Bowel Sounds; Negative Organomegaly
Rectal: Deferred by Provider
Musculoskeletal: No Clubbing, No Cyanosis and No Edema
Skin: Negative Rash
Neuro: Nonfocal/Grossly Intact
[2023-08-17] MEDS: COZAAR 25 MG PO (17:29)
[2023-08-17] MEDS: SENOKOT 8.59999999999999964 MG PO (21:56)
[2023-08-18 03:42] VITALS: BP 138/78
[2023-08-18 06:00] VITALS: BMI 66.3
[2023-08-18 07:50] VITALS: BP 128/86
[2023-08-18] MEDS: BenGay-Like 1 APPLIC TOPICAL (09:08)
[2023-08-18] MEDS: TOPROL XL 50 MG PO (09:09)
[2023-08-18] MEDS: PEPCID 20 MG PO (09:09)
[2023-08-18] MEDS: NON-FORMULARY ITEM 2 SPRAY NASAL (09:09)
[2023-08-18] MEDS: ELIQUIS 10 MG PO (09:09)
[2023-08-18] MEDS: COLACE 100 MG PO (09:09)
[2023-08-18] MEDS: CLARITIN PO (09:09)
[2023-08-18] MEDS: LASIX 40 MG IV (09:10)
[2023-08-18] MEDS: COZAAR 25 MG PO (09:10)
--- NOTE | 2023-08-18 09:27 | W.PN.CARDCBS ---
Today's Communication / Plan
-
He continues to diurese.
Okay for switch to Lasix 40mg po bid.
would be okay with discharge today with follow up
Cont Eliquis.
Impression / Plan
-
PCP: Dr. Kolb
Boxing Trainer: None prior to admission
Impression:
Presented with SOB
Nonocclusive thrombus of L popliteal vein
Acute HFpEF
Pulmonary hypertension
NSVT
nonischemic myocardial injury
HTN
Asthma
GERD
Obesity
Sleep apnea
Echocardiogram 08/15/2023: Definity used, EF 55 to 60%, mild concentric LVH, moderate to severe pulmonary hypertension and PASP 55 to 60 mmHg
Plan:
-Has lost 25 pounds. Would switch to Lasix 40 mg p.o. twice daily and discharged. Will be continuing diuresis as outpatient.
-Remains in sinus rhythm with occasional PVCs.
-K/mag stable
-Continue Toprol 50 mg twice daily. will add losartan 25mg daily
-unclear if candidate for SGLT2 inhibitor. will have CM assess cost to patient
-Dietary consult placed 08/15. He reports he is very motivated to continue to lose weight.
-He is not a candidate for stress testing or invasive treatment given his morbid obesity
-He has been treated empirically for possible pulm embolism with eliquis
-Continue treatment of sleep apnea
-will arrange OP cardiac follow up
HPI: Lev is a 62 year old male with PMH of hypertension, asthma, GERD, and obesity who presented to [facility] for evaluation of progressively worsening SOB. He states symptoms started a few weeks ago and he would feel short of breath after walking
intermittently. He then noted a few days ago he was becoming more SOB. Yesterday he was short of breath after walking up a flight of stairs and noticed that it took him longer than usual to catch his breath. He then felt SOB walking only a few steps
into the bathroom and decided to check his pulse ox which he states was 83-87%. With this, he called his PCP and was recommended ER evaluation. In ER, he was placed on supplemental oxygen and labwork revealed elevated proBNP. He admits to noticing
increased LE edema mostly of the L leg over the past few weeks as well. He was given a dose of IV lasix in the ER and notes he has been responding quickly with good urine output thus far. He had LE US which showed nonocclusive thrombus involving the
L popliteal vein. Given body habitus, plan is for transfer to [place] for further evaluation for possible PE. While in ER, he had 10 beat run of NSVT, during which he was asymptomatic. Given concern for acute heart failure and NSVT, cardiology
consulted. He reports he is feeling well currently. Breathing feels improved with supplemental O2 and lasix. He has no chest pain or dizziness.
Progress Note - Boxing Trainer
Subjective
Date of Service: August 18, 2023
Breathing is much improved and her weight is down 25 pounds.
Objective
Labs:
08/15/23 05:54
08/17/23 04:55
Labs
Hgb 13.5 g/dL (13.0-18.0) 08/15/23 05:54
Hct 44.1 % (39.0-52.0) 08/15/23 05:54
Plt Count 152 10^3/uL (130-400) 08/15/23 05:54
APTT Cancelled 08/14/23 13:30
Sodium 140 mmol/L (135-145) 08/17/23 04:55
Potassium 4.3 mmol/L (3.5-5.1) 08/17/23 04:55
BUN 18 mg/dl (9-20) 08/17/23 04:55
Creatinine 0.8 mg/dL (0.7-1.3) 08/17/23 04:55
Glucose 93 mg/dl (70-99) 08/17/23 04:55
Vital Signs and I&O:
Vital Signs
Temp Pulse Resp BP Pulse Ox
98.3 F 71 18 128/86 97
08/18/23 07:50 08/18/23 09:10 08/18/23 07:50 08/18/23 09:10 08/18/23 07:50
Vital Signs
Temp Pulse Resp BP Pulse Ox
98.3 F 71 18 128/86 97
08/18/23 07:50 08/18/23 09:10 08/18/23 07:50 08/18/23 09:10 08/18/23 07:50
Intake & Output
08/16/23 08/17/23 08/18/23 08/19/23
06:59 06:59 06:59 06:59
Intake Total 1680 / 1680 1080 / 1080 600 / 600
Output Total 1600 / 1600 3375 / 3375 2250 / 2250
Balance 80 / 80 -2295 / -2295 -1650 / -1650
Physical Exam
Physical Exam
GEN: No distress, awake, Ox3
HEENT: supple, anicteric, mmm
LUNGS: CTA, no wheezes/rales
CV: Reg, S1/S2, 1/6 syst LSB, no gallop
ABD: soft, BS+, NT/ND
EXT: No edema
NEURO: Gross non-focal
SKIN: No rash
[2023-08-18 11:50] VITALS: BP 123/83
[2023-08-18] MEDS: BenGay-Like TOPICAL ×2 (13:41→17:35)
--- NOTE | 2023-08-18 14:28 | CM ---
Addendum entered by Hortencia Rojas 08/18/23 16:03:
home o2 eval done for 5 mins.patient maintained poc 93-96% during 5 min walk.he dipped once to 88% but quickly recovered.patient is now discharged to home.[facility] will deliver bipap tomorrow morning.Plan:home with [facility]
Original Note:
met with patient at bedside.patient is sating 97% on ra.cards changing iv lasix to po lasix bid.clinicals faxed to [facility] for bipap.bipap has been approved by insurance co and can be delivered to pt's home tomorrow. cost of jardiance to patient is
$60 for [address] escobar updated.home o2 eval in progress.he will discharge patient home tomorrow.
--- NOTE | 2023-08-18 15:02 | W.DS.TRANS ---
DC Summary - Airborne And Air Delivery Specialist
-
Discharge Instructions:
Sleep Apnea Risk High
Discharge Diagnosis/Procedures Presentation with shortness of breath and
hypoxia.
Acute hypoxic/hypercarbic respiratory failure
most likely secondary to pulmonary embolism
Left lower extremity DVT, new diagnosis
Episode of ventricular tachycardia, asymptomatic
while in the emergency room
Non-AZ troponin elevation
Elevated pro CHF BNP
Essential hypertension.
Asthma without exacerbation
Morbid obesity with BMI of 69.
GERD
Diet 2 Gram Sodium
Blood Work BMP in 1 week
Specialty Instructions Weigh Daily
Instructions: *[facility] Heart Failure Instructions
Stand-Alone Forms:
Changes to Home Medications: Yes
Discharge Medications:
DC Medications w/original date entered in [employer]
albuterol sulfate 90 mcg/actuation aerosol inhaler 2 puff inhalation R [id number] PRN wheezing, shortness of breath ##1 10/08/10
azelastine 137 mcg (0.1 %) nasal spray aerosol 2 spray intranasal BID Allergies 08/12/23
famotidine 20 mg tablet (Pepcid AC) 20 mg PO BID Gastrointestinal Issue 08/12/23
camphor-menthol 0.2 %-3.5 % topical gel 1 applic topical DAILY PRN shoulder/knee pain 08/13/23
apixaban 5 mg tablet (Eliquis) 10 mg (2 x 5 mg) PO BID #90 tabs 08/18/23
furosemide 40 mg tablet 40 mg PO BID #60 tabs 08/18/23
losartan 25 mg tablet 25 mg PO DAILY #30 tabs 08/18/23
metoprolol succinate 50 mg tablet,extended release 24 hr 50 mg PO BID #60 tabs 08/18/23
sennosides 8.6 mg tablet (Senna Laxative) 8.6 mg PO HS #30 tabs 08/18/23
Home Medication Changes
All of above.
BIpap at night
Pending Results: No
--- NOTE | 2023-08-18 15:21 | PTCARENOTE ---
Patient had walking pulse ox done with this RN around the unit. Patient walked for about 5mns, maintained a pulse ox of 93-96% on room air. 1 short episode of a drop in saturation noted (@ 88%) but quickly recovered. HR in the 100's-120's. Dr
Tara doyle.
[2023-08-18 15:55] VITALS: BP 122/83
[2023-08-18] MEDS: LASIX IV (17:04)
[2023-08-18] MEDS: LASIX 40 MG PO (17:04)
== END 2023-08-18 18:04 | disposition home health service (06) | DRG 175 ==
LOC: 2 NORTH 13:59
PROVIDERS: Emergency Medicine; Internal Medicine; ADMITTING PHYSICIAN Internal Medicine; CONSULT PHYSICIAN Internal Medicine Cardiovascular Disease; EMERGENCY PHYSICIAN Emergency Medicine; FAMILY PHYSICIAN Family Medicine
PROC: 5A09357 Assistance with Respiratory Ventilation, Less than 24 Consecutive Hours, Continuous Positive Airway Pressure (ICD-10-PCS; 2023-08-15)
DX: I26.99 Other pulmonary embolism without acute cor pulmonale (principal); I50.33 Acute on chronic diastolic (congestive) heart failure; J96.01 Acute respiratory failure with hypoxia; J96.02 Acute respiratory failure with hypercapnia; Z68.44 Body mass index [BMI] 60.0-69.9, adult; I82.432 Acute embolism and thrombosis of left popliteal vein; I47.20 Ventricular tachycardia, unspecified; I5A Non-ischemic myocardial injury (non-traumatic); G47.33 Obstructive sleep apnea (adult) (pediatric); I27.20 Pulmonary hypertension, unspecified; I11.0 Hypertensive heart disease with heart failure; K21.9 Gastro-esophageal reflux disease without esophagitis; E66.01 Morbid (severe) obesity due to excess calories; J45.909 Unspecified asthma, uncomplicated
CPT/HCPCS: 36600; 71046; 80048; 80053; 80061; 82805; 83036; 83735; 83880; 84443; 84484; 85025; 85027; 85730; 93005; 93306; 93970; 94660; 94760; 96365; 96366; 96375; 99285; Q9950